=== PATIENT | female | born 1990 | race Caucasian/White ===

== ENCOUNTER 2020-02-23 22:39 | Emergency (ER) | payer BC, OTHER ==
[2020-02-23] MEDS ORDERED: SODIUM CHLORIDE 0.9% 1,000 ML IV ONE (22:58)
[2020-02-23] MEDS ORDERED: MORPHINE SULFATE 4 MG/ML SYRINGE IV STA (23:39)
[2020-02-23] MEDS ORDERED: ONDANSETRON 4 MG/2 ML VIAL IVP STA (23:39)
[2020-02-23 23:41] LABS: Basophils % (A) 0 %; Eosinophils # (A) 0.1 k/uL (0-0.7); Eosinophils % (A) 1 %; HGB 12.9 gm/dL (11.4-16.0); Lymphocytes # (A) 1.7 k/uL (1.0-4.8); Lymphocytes % (A) 15 %; MCH 31.3 pg (25.0-35.0); MCHC 33.9 g/dL (31.0-37.0); MCV 92.4 fL (80.0-100.0); Mean Platelet Volume 8.7; Monocytes # (A) 0.6 k/uL (0-1.0); Monocytes % (A) 5 %; Neutrophils # (A) 8.9 k/uL (1.3-7.7); Neutrophils % (A) 77 %; Platelet Count 216 k/uL (150-450); RBC 4.11 m/uL (3.80-5.40); RDW 12.5 % (11.5-15.5); WBC 11.5 k/uL (3.8-10.6)
[2020-02-23 23:57] LABS: African American GFR (CKD) >90 (>60 ml/min/1.73 sqM); Anion Gap 9 mmol/L; Blood Urea Nitrogen 12 mg/dL (7-17); Calcium 9.2 mg/dL (8.4-10.2); Carbon Dioxide 19 mmol/L (22-30); Chloride 107 mmol/L (98-107); Glucose 141 mg/dL (74-99); Non-African American GFR(CKD) >90 (>60 ml/min/1.73 sqM); Potassium 3.7 mmol/L (3.5-5.1); Sodium 135 mmol/L (137-145)
[2020-02-24 00:14] LABS: HCG,Quantitative Serum 394.6 mIU/mL
[2020-02-24] MEDS ORDERED: ONDANSETRON 4 MG/2 ML VIAL IVP STA (00:53)
[2020-02-24] MEDS ORDERED: MORPHINE SULFATE 4 MG/ML SYRINGE IV STA (01:18)
--- NOTE | 2020-02-24 02:56 | US ---
EXAMINATION TYPE: Transabdominal DATE OF EXAM: 02/24/2020 2:35 AM COMPARISON: NONE CLINICAL HISTORY: R/O ectopic. Pain and vomiting. EXAM PERFORMED: Transvaginal (TV) and Transabdominal (TA) EXAM MEASUREMENTS: GESTATIONAL AGE / DATING Physician Established: Not yet established Dates by LMP: (5 weeks/0 days) EDC: 10/26/2020 Dates by First Scan: No previous this is first scan Dates by Current Scan for: No IUP seen at this time MATERNAL ANATOMY Uterus: 7.5 x 3.3 x 3.4 cm Right Ovary: 2.0 x 1.6 x 1.5 cm Left Ovary: 3.6 x 2.7 x 3.2 cm Post CDS / Adnexa: comples fluid area Presence of free fluid: yes Presence of corpus luteal cyst: no Presence of subchorionic bleed: no GESTATION / SURVEY IUP: No IUP seen at this time Beta HcG (if available): 394.6 No definite ectopic visualized. IMPRESSION: There is tiny amount of free fluid in the cul-de-sac. No evidence of a gestational sac. N o sign of ectopic .
[2020-02-24] MEDS ORDERED: fentaNYL (PF) 50 MCG/ML 2 ML AMP IV STA ×2 (03:47→04:32)
[2020-02-24] MEDS ORDERED: SODIUM CHLORIDE 0.9% 1,000 ML IV ONE (05:10)
--- NOTE | 2020-02-24 05:22 | ED ---
Abdominal Pain HPI - General Chief Complaint: Abdominal Pain Stated Complaint: Abdominal Pain,2-3 wks poss ectopic Time Seen by Provider: 02/23/20 22:56 Source: patient Mode of arrival: ambulatory Limitations: no limitations - History of Present Illness Initial Comments: This patient is a 30-year-old woman who presents to be evaluated for suprapubic abdominal pain. She states that her pain began at 4 PM. She did go to [facility] regarding the pain. She also had a recent test that was positive. While at the [facility] she had labs that showed a hCG of 470, and she had an ultrasound that did not reveal location of her . There was however no evidence of ectopic . The patient states that she was advised if the pain worsened she should come to the emergency department here and may need to be seen by Dr. Ham. The patient states that she had gone home and then her pain did indeed worsened. She has also been having nausea and vomiting. MD Complaint: abdominal pain -: hour(s) Location: suprapubic Radiation: none Migration to: no migration Severity: severe Quality: cramping Consistency: constant Improves With: nothing Worsens With: nothing - Related Data LMP (females 10-50): 1 month Allergies Allergy/AdvReac Type Severity Reaction Status Date / Time loratadine [From Claritin] Allergy Rash/Hives Verified 02/25/20 14:59 Review of Systems ROS Statement: Those systems with pertinent positive or pertinent negative responses have been documented in the HPI. ROS Other: All systems not noted in ROS Statement are negative. Constitutional: Denies: fever, chills Respiratory: Denies: cough, dyspnea Cardiovascular: Denies: chest pain, palpitations Gastrointestinal: Reports: abdominal pain, nausea, vomiting. Denies: diarrhea, constipation Genitourinary: Reports: abnormal menses. Denies: dysuria, hematuria Musculoskeletal: Denies: back pain Skin: Denies: rash Neurological: Denies: headache, weakness, numbness Past Medical History Additional Past Medical History / Comment(s): PCOS History of Any Multi-Drug Resistant Organisms: None Reported Past Surgical History: No Surgical Hx Reported Past Psychological History: No Psychological Hx Reported Smoking Status: Never smoker Past Alcohol Use History: None Reported Past Drug Use History: None Reported General Exam Limitations: no limitations General appearance: alert, in no apparent distress Head exam: Present: atraumatic, normocephalic Eye exam: Present: normal appearance. Absent: scleral icterus, conjunctival injection ENT exam: Present: normal oropharynx Neck exam: Present: normal inspection Respiratory exam: Present: normal lung sounds bilaterally. Absent: respiratory distress, wheezes, rales, rhonchi, stridor Cardiovascular Exam: Present: regular rate, normal rhythm, tachycardia, normal heart sounds. Absent: systolic murmur, diastolic murmur, rubs, gallop GI/Abdominal exam: Present: soft, normal bowel sounds. Absent: distended, tenderness, guarding, rebound, rigid, mass, pulsatile mass, hernia Extremities exam: Present: normal inspection, normal capillary refill. Absent: pedal edema, calf tenderness Back exam: Present: normal inspection. Absent: CVA tenderness (R), CVA tenderness (L) Neurological exam: Present: alert Skin exam: Present: warm, dry, intact, normal color. Absent: rash Course Vital Signs 02/23/20 02/24/20 02/24/20 22:51 00:04 01:24 Temperature 98.4 F 96.8 F L Pulse Rate 115 H 116 H 96 Respiratory 20 19 19 Rate Blood Pressure 132/87 121/84 110/77 O2 Sat by Pulse 100 100 100 Oximetry 02/24/20 02/24/20 02/24/20 02:35 05:18 05:51 Temperature 97.0 F L 98.0 F Pulse Rate 100 98 82 Respiratory 19 18 16 Rate Blood Pressure 118/94 106/71 107/61 O2 Sat by Pulse 100 99 99 Oximetry Medical Decision Making - Medical Decision Making Patient is a 30-year-old woman in her early with suprapubic pain. The repeat here does not show an increase in pelvic fluid. No observed. Case discussed with Dr. Ham does recommend serial hCG and ultrasound. Patient has had symptomatic improvement. We discussed appropriate further care and follow-up as well as return parameters. - Lab Data Result diagrams: 02/23/20 23:31 02/23/20 23:31 Lab Results 02/23/20 02/23/20 02/23/20 Range/Units 23:31 23:31 23:31 WBC 11.5 H (3.8-10.6) k/uL RBC 4.11 (3.80-5.40) m/uL Hgb 12.9 (11.4-16.0) gm/dL Hct 38.0 (34.0-46.0) % MCV 92.4 (80.0-100.0) fL MCH 31.3 (25.0-35.0) pg MCHC 33.9 (31.0-37.0) g/dL RDW 12.5 (11.5-15.5) % Plt Count 216 (150-450) k/uL Neutrophils % 77 % Lymphocytes % 15 % Monocytes % 5 % Eosinophils % 1 % Basophils % 0 % Neutrophils # 8.9 H (1.3-7.7) k/uL Lymphocytes # 1.7 (1.0-4.8) k/uL Monocytes # 0.6 (0-1.0) k/uL Eosinophils # 0.1 (0-0.7) k/uL Basophils # 0.0 (0-0.2) k/uL Sodium 135 L (137-145) mmol/L Potassium 3.7 (3.5-5.1) mmol/L Chloride 107 (98-107) mmol/L Carbon Dioxide 19 L (22-30) mmol/L Anion Gap 9 mmol/L BUN 12 (7-17) mg/dL Creatinine 0.80 (0.52-1.04) mg/dL Est GFR (CKD-EPI)AfAm >90 (>60 ml/min/1.73 sqM) Est GFR (CKD-EPI)NonAf >90 (>60 ml/min/1.73 sqM) Glucose 141 H (74-99) mg/dL Calcium 9.2 (8.4-10.2) mg/dL HCG, Quant 394.6 mIU/mL Blood Type O Positive Blood Type Recheck No Previous Record Bld Type Recheck Status [facility] ONLY Disposition Clinical Impression: Threatened Disposition: HOME SELF-CARE Condition: Good Instructions (If sedation given, give patient instructions): Ectopic (DC), Threatened Miscarriage (ED) Is patient prescribed a controlled substance at d/c from ED?: No Referrals: Catherine Augustine MD [Primary Care Provider] - 1-2 days Jada Ham DO [Doctor of Osteopathic Medicine] - 1-2 days
[2020-02-24 05:52] VITALS: BP 107/61; PULSE 82; RESP 16; TEMP 98
== END 2020-02-24 05:50 | disposition home or self-care (01) ==
LOC: EC 22:39
DX: O20.0 Threatened abortion (principal); Z3A.00 Weeks of gestation of pregnancy not specified; Z88.8 Allergy status to other drugs, medicaments and biological substances
CPT/HCPCS: 36415; 86900; 86901; 80048; 85025; 84702; 99284; 96374; 96375 ×2; 96376 ×2; 96361; J2405; 76801; 76817

== ENCOUNTER 2020-02-25 09:57 | Observation (INO) | payer OTHER ==
[2020-02-25] MEDS ORDERED: SODIUM CHLORIDE 0.9% 1,000 ML IV ONE ×2 (10:20→13:14)
[2020-02-25 10:45] LABS: Appearance,Urine Cloudy (Clear); Bilirubin,Urine Negative (Negative); Blood,Urine Negative (Negative); Color,Urine Yellow; Glucose,Urine (UA) Negative (Negative); Ketones,Urine 1+ (Negative); Leukocyte Esterase,Urine Negative (Negative); Mucus,Urine Few /hpf; Nitrite,Urine Negative (Negative); Protein,Urine Trace (Negative); RBC,Urine 2 /hpf (0-5); Specific Gravity,Urine 1.016 (1.001-1.035); Squamous Epithelial Cell,Urine 8 /hpf (0-4); Urobilinogen,Urine <2.0 mg/dL (<2.0); WBC,Urine 1 /hpf (0-5)
[2020-02-25 10:55] LABS: Basophils % (A) 0 %; Eosinophils # (A) 0.1 k/uL (0-0.7); Eosinophils % (A) 1 %; HCT 27.2 % (34.0-46.0); Lymphocytes # (A) 1.3 k/uL (1.0-4.8); Lymphocytes % (A) 19 %; MCH 32.8 pg (25.0-35.0); MCHC 35.1 g/dL (31.0-37.0); MCV 93.4 fL (80.0-100.0); Mean Platelet Volume 8.5; Monocytes # (A) 0.5 k/uL (0-1.0); Monocytes % (A) 7 %; Neutrophils # (A) 4.7 k/uL (1.3-7.7); Neutrophils % (A) 71 %; Platelet Count 197 k/uL (150-450); RBC 2.91 m/uL (3.80-5.40); RDW 12.7 % (11.5-15.5); WBC 6.7 k/uL (3.8-10.6)
[2020-02-25 10:56] LABS: HGB 9.6 gm/dL (11.4-16.0)
[2020-02-25 10:59] LABS: ALT 13 U/L (4-34); AST 19 U/L (14-36); African American GFR (CKD) >90 (>60 ml/min/1.73 sqM); Albumin 4.1 g/dL (3.5-5.0); Alkaline Phosphatase 42 U/L (38-126); Anion Gap 8 mmol/L; Blood Urea Nitrogen 7 mg/dL (7-17); Calcium 8.6 mg/dL (8.4-10.2); Carbon Dioxide 21 mmol/L (22-30); Chloride 110 mmol/L (98-107); Glucose 111 mg/dL (74-99); Non-African American GFR(CKD) >90 (>60 ml/min/1.73 sqM); Potassium 3.7 mmol/L (3.5-5.1); Sodium 139 mmol/L (137-145); Total Bilirubin 0.7 mg/dL (0.2-1.3); Total Protein 6.7 g/dL (6.3-8.2)
--- NOTE | 2020-02-25 11:02 | ED ---
General Adult HPI - General Chief complaint: Arrhythmia/Palpitations Stated complaint: high heart rate/high BP/lab recheck Time Seen by Provider: 02/25/20 10:05 Source: patient, RN notes reviewed, old records reviewed Mode of arrival: ambulatory Limitations: no limitations - History of Present Illness Initial comments: This is a 30-year-old female who presents emergency Department stating that she is . Patient states she was here on Monday with abdominal pain. Patient states the pain is in the lower abdomen in the upper abdomen. Patient states they did an ultrasound was unable to see any intrauterine . Patient states her beta hCG was in the 300s. Patient states she is back today because she felt her heart rate going up to 140 last night and she called her [employer] and they told her to come into the hospital to be evaluated. Patient states she still has some abdominal pain the suprapubic region in the epigastric region but it is much improved compared to the other night when she was in the emergency department. Patient denies any vaginal bleeding at any time. - Related Data Home Medications Medication Instructions Recorded Confirmed [id number] Acid 1 cap PO DAILY 02/25/20 02/25/20 [-U Capsule (formulary)] Allergies Allergy/AdvReac Type Severity Reaction Status Date / Time loratadine [From Claritin] Allergy Rash/Hives Verified 02/25/20 10:55 Review of Systems ROS Statement: Those systems with pertinent positive or pertinent negative responses have been documented in the HPI. ROS Other: All systems not noted in ROS Statement are negative. Past Medical History Additional Past Medical History / Comment(s): PCOS History of Any Multi-Drug Resistant Organisms: None Reported Past Surgical History: No Surgical Hx Reported Past Psychological History: No Psychological Hx Reported Smoking Status: Never smoker Past Alcohol Use History: None Reported Past Drug Use History: None Reported General Exam - General Exam Comments Initial Comments: GENERAL: Patient is well-developed and well-nourished. Patient is nontoxic and well- hydrated and is in mild distress. ENT: Neck is soft and supple. No significant lymphadenopathy is noted. Oropharynx is clear. Moist mucous membranes. Neck has full range of motion without eliciting any pain. EYES: The sclera were anicteric and conjunctiva were pink and moist. Extraocular movements were intact and pupils were equal round and reactive to light. Eyelids were unremarkable. PULMONARY: Unlabored respirations. Good breath sounds bilaterally. No audible rales rhonchi or wheezing was noted. CARDIOVASCULAR: There is a regular rate and rhythm without any murmurs gallops or rubs. ABDOMEN: Patient has tenderness in the suprapubic and epigastric region. SKIN: Skin is clear with no lesions or rashes and otherwise unremarkable. NEUROLOGIC: Patient is alert and oriented x3. Cranial nerves II through XII are grossly intact. Motor and sensory are also intact. Normal speech, volume and content. Symmetrical smile. MUSCULOSKELETAL: Normal extremities with adequate strength and full range of motion. LYMPHATICS: No significant lymphadenopathy is noted PSYCHIATRIC: Normal psychiatric evaluation. Limitations: no limitations Course Vital Signs 02/25/20 02/25/20 02/25/20 10:07 10:19 10:45 Temperature 98.7 F Pulse Rate 105 H Pulse Rate [ 105 H 105 H Acute Specialist ] Pulse Rate [ 120 H Sitting] Pulse Rate [ 123 H Standing] Pulse Rate [ 105 H Supine] Respiratory 18 Rate Blood Pressure 119/73 Blood Pressure 125/72 [Sitting] Blood Pressure 121/73 [Standing] Blood Pressure 123/63 [Supine] O2 Sat by Pulse 100 Oximetry Medical Decision Making - Medical Decision Making EKG shows sinus tachycardia at 102 bpm LA interval 240 QRS is 96 QT interval 364 QTC is 474. Patient's EKG shows no ST segment elevation or depression. Ultrasound showed no intrauterine . Showed a scant amount of fluid unchanged from the previous ultrasound. I spoke with Dr. Dora John came to the emergency department and saw the patient and wanted the patient admitted. - Lab Data Result diagrams: 02/25/20 10:25 02/25/20 10:25 Lab Results 02/25/20 02/25/20 02/25/20 Range/Units 10:25 10:25 10:25 WBC 6.7 (3.8-10.6) k/uL RBC 2.91 L (3.80-5.40) m/uL Hgb 9.6 L D (11.4-16.0) gm/dL Hct 27.2 L (34.0-46.0) % MCV 93.4 (80.0-100.0) fL MCH 32.8 (25.0-35.0) pg MCHC 35.1 (31.0-37.0) g/dL RDW 12.7 (11.5-15.5) % Plt Count 197 (150-450) k/uL Neutrophils % 71 % Lymphocytes % 19 % Monocytes % 7 % Eosinophils % 1 % Basophils % 0 % Neutrophils # 4.7 (1.3-7.7) k/uL Lymphocytes # 1.3 (1.0-4.8) k/uL Monocytes # 0.5 (0-1.0) k/uL Eosinophils # 0.1 (0-0.7) k/uL Basophils # 0.0 (0-0.2) k/uL Sodium 139 (137-145) mmol/L Potassium 3.7 (3.5-5.1) mmol/L Chloride 110 H (98-107) mmol/L Carbon Dioxide 21 L (22-30) mmol/L Anion Gap 8 mmol/L BUN 7 (7-17) mg/dL Creatinine 0.70 (0.52-1.04) mg/dL Est GFR (CKD-EPI)AfAm >90 (>60 ml/min/1.73 sqM) Est GFR (CKD-EPI)NonAf >90 (>60 ml/min/1.73 sqM) Glucose 111 H (74-99) mg/dL Calcium 8.6 (8.4-10.2) mg/dL Total Bilirubin 0.7 (0.2-1.3) mg/dL AST 19 (14-36) U/L ALT 13 (4-34) U/L Alkaline Phosphatase 42 (38-126) U/L Total Protein 6.7 (6.3-8.2) g/dL Albumin 4.1 (3.5-5.0) g/dL HCG, Quant 327.2 mIU/mL Urine Color Yellow Urine Appearance Cloudy H (Clear) Urine pH 6.0 (5.0-8.0) Ur Specific [place] 1.016 (1.001-1.035) Urine Protein Trace H (Negative) Urine Glucose (UA) Negative (Negative) Urine Ketones 1+ H (Negative) Urine Blood Negative (Negative) Urine Nitrite Negative (Negative) Urine Bilirubin Negative (Negative) Urine Urobilinogen <2.0 (<2.0) mg/dL Ur Leukocyte Esterase Negative (Negative) Urine RBC 2 (0-5) /hpf Urine WBC 1 (0-5) /hpf Ur Squamous Epith Cells 8 H (0-4) /hpf Urine Mucus Few H (None) /hpf Disposition Clinical Impression: Ectopic , Anemia Disposition: ADMITTED IP TO THIS HOSP Referrals: Catherine Augustine MD [Primary Care Provider] - 1-2 days Time of Disposition: 13:05
[2020-02-25 11:14] LABS: HCG,Quantitative Serum 327.2 mIU/mL
--- NOTE | 2020-02-25 12:41 | US ---
EXAMINATION TYPE: Transabdominal DATE OF EXAM: 02/25/2020 11:49 AM COMPARISON: NONE CLINICAL HISTORY: Abdominal pain . Pain EXAM PERFORMED: Transvaginal (TV) and Transabdominal (TA) EXAM MEASUREMENTS: GESTATIONAL AGE / DATING Physician Established: Not yet established Dates by LMP: ( 5 weeks/1 days) EDC: 10/26/2020 Dates by First Scan: (5 weeks/0 days) EDC: 10/26/2020 Dates by Current Scan for: No IUP seen at this time MATERNAL ANATOMY Uterus: 7.6 x 3.1 x 5.7cm Right Ovary: 2.6 x 1.9 x 2.6 cm Left Ovary: Obscured by bowel gas. Post CDS / Adnexa: wnl Presence of free fluid: yes Presence of corpus luteal cyst: no Presence of subchorionic bleed: no GESTATION / SURVEY IUP: No IUP seen at this time Beta HcG (if available): 327.2 IMPRESSION: No intrauterine identified at this time. Correlate serial beta hCG and/or ultrasound.
--- NOTE | 2020-02-25 13:32 | P.HPOB ---
History of Present Illness H&P Date: 02/25/20 Chief Complaint: Possible ectopic , anemia This is a 30-year-old female 1 para 0 with an estimated date of confinement of 01/20/2020 who presented to the emergency room today with complaints of heart palpitations and tachycardia up to the 140s last night. She also stated her blood pressure was elevated at about 160/90. She initially presented to the emergency room at [facility] on Monday and was told her beta hCG was of around 470. Ultrasound did not show anything. She returned to the emergency room Monday at [facility] with complaints of worsening abdominal pain. She denied any vaginal bleeding. At that time beta hCG level had dropped to approximately 390. Ultrasound showed only a small amount of free fluid and nothing in the uterus. They did give her pain medication and her pain did subside. Today she states her pain is much better than it was on Monday night. She does still have some upper abdominal discomfort which is worse than her lower abdominal pain. She did state she was feeling a pressure when she tried to urinate or have a bowel movement on Monday but this has resolved now. Her concern today was her heart rate and palpitations. She denies any nausea but did have some nausea after the pain medication on Monday. Pelvic ultrasound today showed no increase in free fluid and still nothing in the uterus or the adnexal areas. The patient does have a history of polycystic ovarian disease and was told that she could not get . She has been trying for a number of years to get and had pretty much given up. At this time, she does not plan to try to get ag derik and her had discussed getting a vasectomy. If she does need surgery, she is not opposed to losing her tube. REHABILITATION AIDE/SCHEDULER history: No history of sexually transmitted diseases. She lost approximat leonides 30 pounds and her periods did become more regular and monthly over the last year. Previously she had had irregular periods. 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 Review of Systems Constitutional: Denies chills, Denies fever Eyes: denies blurred vision, denies pain Ears, nose, mouth and throat: Denies headache, Denies sore throat Cardiovascular: Denies chest pain, Denies shortness of breath Respiratory: Denies cough Gastrointestinal: Reports abdominal pain, Denies nausea, Denies vomiting Genitourinary: Reports pelvic pain, Reports , Denies abnormal vaginal bleeding Musculoskeletal: Denies myalgias Integumentary: Denies pruritus, Denies rash Neurological: Denies numbness, Denies weakness Past Medical History Additional Past Medical History / Comment(s): PCOS History of Any Multi-Drug Resistant Organisms: None Reported Additional Past Surgical History / Comment(s): D&C approximate 10 years ago for heavy bleeding Past Psychological History: No Psychological Hx Reported Smoking Status: Never smoker Past Alcohol Use History: None Reported Past Drug Use History: None Reported Medications and Allergies Home Medications Medication Instructions Recorded Confirmed Type Cwj-Ttaw-Aopiu Acid 1 cap PO DAILY 02/25/20 02/25/20 History [-U Capsule (formulary)] Allergies Allergy/AdvReac Type Severity Reaction Status Date / Time loratadine [From Claritin] Allergy Rash/Hives Verified 02/25/20 10:55 Exam Osteopathic Statement: *. No significant issues noted on an osteopathic structural exam other than those noted in the History and Physical/Consult. Vital Signs Temp Pulse Pulse Pulse Pulse Pulse Resp 02/25/20 10:45 105 H 120 H 123 H 105 H 02/25/20 10:19 105 H 02/25/20 10:07 98.7 F 105 H 18 BP BP BP BP Pulse Ox 02/25/20 10:45 125/72 121/73 123/63 02/25/20 10:19 02/25/20 10:07 119/73 100 Intake and Output 02/24/20 02/25/20 02/25/20 22:59 06:59 14:59 Other: Weight 88.451 kg Gen.: Well-developed well-nourished female in no acute distress. 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 She is tender in the epig astric and right upper abdomen area with no masses palpated. Very minimal tenderness suprapubically. Pelvic exam deferred at this time Extremities: Negative Homans Results Result Diagrams: 02/25/20 10:25 02/25/20 10:25 Abnormal Lab Results - Last 24 Hours (Table) 02/25/20 02/25/20 02/25/20 Range/Units 10:25 10:25 10:25 RBC 2.91 L (3.80-5.40) m/uL Hgb 9.6 L D (11.4-16.0) gm/dL Hct 27.2 L (34.0-46.0) % Chloride 110 H (98-107) mmol/L Carbon Dioxide 21 L (22-30) mmol/L Glucose 111 H (74-99) mg/dL Urine Appearance Cloudy H (Clear) Urine Protein Trace H (Negative) Urine Ketones 1+ H (Negative) Ur Squamous Epith Cells 8 H (0-4) /hpf Urine Mucus Few H (None) /hpf Assessment and Plan (1) Anemia Current Visit: Yes Status: Acute Code(s): D64.9 - ANEMIA, UNSPECIFIED SNOMED Code(s): 943135020 (2) Ectopic Current Visit: Yes Status: Acute Code(s): O00.90 - UNSPECIFIED ECTOPIC WITHOUT INTRAUTERINE SNOMED Code(s): 79657641 Plan: I discussed plan of care with patient and her . Since her beta hCG level is going down, her pain is decreased, and her ultrasound today still shows no increase in free fluid despite her drop in hemoglobin, I would like to admit her for observation and serial hemoglobins. If her pain increases or her serial H&H's show a steady decline, we will consider laparoscopy at that time. I Will allow her to eat right now but will keep her nothing by mouth after midnight just in case surgery is necessary. Patient and her are in agreement with this plan.
[2020-02-25 18:00] LABS: Basophils % (A) 0 %; Eosinophils # (A) 0.1 k/uL (0-0.7); Eosinophils % (A) 2 %; HCT 25.3 % (34.0-46.0); HGB 8.5 gm/dL (11.4-16.0); Lymphocytes # (A) 1.4 k/uL (1.0-4.8); Lymphocytes % (A) 21 %; MCH 31.9 pg (25.0-35.0); MCHC 33.6 g/dL (31.0-37.0); Mean Platelet Volume 8.5; Monocytes # (A) 0.4 k/uL (0-1.0); Monocytes % (A) 6 %; Neutrophils # (A) 4.6 k/uL (1.3-7.7); Neutrophils % (A) 69 %; Platelet Count 173 k/uL (150-450); RBC 2.66 m/uL (3.80-5.40); RDW 12.9 % (11.5-15.5); WBC 6.7 k/uL (3.8-10.6)
[2020-02-25 23:50] LABS: Basophils % (A) 1 %; Eosinophils # (A) 0.2 k/uL (0-0.7); Eosinophils % (A) 3 %; HCT 24.8 % (34.0-46.0); HGB 8.2 gm/dL (11.4-16.0); Lymphocytes # (A) 1.5 k/uL (1.0-4.8); Lymphocytes % (A) 25 %; MCH 31.5 pg (25.0-35.0); MCV 95.4 fL (80.0-100.0); Mean Platelet Volume 8.4; Monocytes # (A) 0.4 k/uL (0-1.0); Monocytes % (A) 7 %; Neutrophils # (A) 3.9 k/uL (1.3-7.7); Neutrophils % (A) 63 %; Platelet Count 183 k/uL (150-450); WBC 6.2 k/uL (3.8-10.6)
[2020-02-26 06:12] LABS: Basophils % (A) 1 %; Eosinophils # (A) 0.2 k/uL (0-0.7); Eosinophils % (A) 3 %; HCT 23.6 % (34.0-46.0); HGB 8.2 gm/dL (11.4-16.0); Lymphocytes # (A) 1.3 k/uL (1.0-4.8); Lymphocytes % (A) 27 %; MCHC 34.7 g/dL (31.0-37.0); MCV 95.1 fL (80.0-100.0); Mean Platelet Volume 8.8; Monocytes # (A) 0.3 k/uL (0-1.0); Monocytes % (A) 6 %; Neutrophils % (A) 61 %; Platelet Count 180 k/uL (150-450); RBC 2.48 m/uL (3.80-5.40); RDW 13.3 % (11.5-15.5); WBC 4.9 k/uL (3.8-10.6)
[2020-02-26] MEDS ORDERED: METHOTREXATE SODIUM (PF) 25 MG/ML 2 ML VIAL IM ONE (08:57)
--- NOTE | 2020-02-26 09:05 | P.DS ---
Providers Date of admission: 02/25/20 13:29 Expected date of discharge: 02/26/20 Attending physician: Lila John Primary care physician: Catherine Augustine - Discharge Diagnosis(es) (1) Anemia Current Visit: Yes Status: Acute (2) Ectopic Current Visit: Yes Status: Acute Hospital Course: This is a 30-year-old female 1 para 0 with probable ectopic based on ultrasound and symptoms. Her pain has not increased but still is at about 4 out of 10. She has not taken any pain medication through the night. She denies any vaginal bleeding. She has not felt dizzy or lightheaded and denies any nausea or vomiting. She denies any fast heart rate through the night. We have discussed our plan of care and will proceed with methotrexate injection today and repeat beta hCG level next Monday. We will keep her off of work until at least the following Monday. She is advised to call or return to the emergency room if she starts having severe pain, dizziness or lightheadedness, or any other concerns. We had a long discussion regarding potential surgery versus methotrexate and agree that I may given and do surgery and not find the ectopic at this time. Since her beta hCG levels are going down, we understand that this is not a normal . She is in agreement to give the methotrexate a try. She is advised to follow up in the office with me next and to get her beta hCG level drawn on Monday. Abdomen is soft with minimal tenderness, no guarding or rebound, and no masses palpated. She is having normal bowel movements. Impression is probable ectopic . Plan is to discharge home today after methotrexate injection. Patient Condition at Discharge: Stable Plan - Discharge Summary Discharge Rx Participant: No New Discharge Prescriptions: Discontinued [id number] Acid [-U Capsule (formulary)] 1 cap PO DAILY Follow up Appointment(s)/Referral(s): Catherine Augustine MD [Primary Care Provider] - 1-2 days Lila John DO [Doctor of Osteopathic Medicine] - 03/05/20 Activity/Diet/Wound Care/Special Instructions: Off work until 03/09/2020. Limited activity. No intercourse. No heavy lifting. If severe pain, dizziness or lightheadedness, persistent tachycardia, return to emergency room or call the office. Discharge Disposition: HOME SELF-CARE
[2020-02-26 10:45] VITALS: RESP 18
[2020-02-26 11:14] VITALS: BP 128/78; PULSE 89; TEMP 98.4
== END 2020-02-26 11:27 | disposition home or self-care (01) ==
LOC: EC 09:57 → 6PED 13:29
PROVIDERS: ADMIT Obstetrics & Gynecology; ATTEND Obstetrics & Gynecology
DX: O00.90 Unspecified ectopic pregnancy without intrauterine pregnancy (principal); D64.9 Anemia, unspecified; E28.2 Polycystic ovarian syndrome; R00.2 Palpitations; R00.0 Tachycardia, unspecified; R03.0 Elevated blood-pressure reading, without diagnosis of hypertension; Z88.8 Allergy status to other drugs, medicaments and biological substances; Z03.818 Encounter for observation for suspected exposure to other biological agents ruled out
CPT/HCPCS: 96361 ×2; 96372; 96360; 99285; 36415; 93005; 80053; 85025 ×2; 81001; 84702 ×2; 76801; 76817; G0378 ×2; U0003; J9260

== ENCOUNTER → 2020-03-04 | Outpatient (CLI) | payer OTHER | END | disposition home or self-care (01) | LOC: LABWHC1 11:02 | PROVIDERS: ATTEND Obstetrics & Gynecology | DX: O00.90 Unspecified ectopic pregnancy without intrauterine pregnancy (principal) | CPT/HCPCS: 36415; 84702 ==

== ENCOUNTER 2020-11-17 10:57 | Emergency (ER) | payer BC ==
[2020-11-17 11:14] VITALS: TEMP 97.9
--- NOTE | 2020-11-17 11:37 | ED ---
General Adult HPI - General Chief complaint: Chest Pain Stated complaint: chest pain Time Seen by Provider: 11/17/20 11:16 Source: patient, RN notes reviewed Mode of arrival: ambulatory Limitations: no limitations - History of Present Illness Initial comments: 30-year-old female with a past medical history of PCOS, ectopic presents to the emergency room for a chief complaint of chest pain. Patient reports that about a week and half ago she started to experience some back pain. States she was noticing this when walking. Patient states the symptoms have progressed and she is now having right sided anterior chest pain that comes and goes. She did see her doctor who diagnosed her with a T-wave inversion on EKG. She was scheduled for a stress test on December 03. However when symptoms were worsening over the weekend her doctor recommended she come to the emergency room. Patient denies any nausea associated with the pain. She denies radiating pain. Patient denies diaphoresis. No smoking history however she does have history of high cholesterol, currently trying to control his diet. Patient also states she did gain 11 pounds in the past 2 months. Patient has no other complaints at this time including abdominal pain, nausea or vomiting, headache, or visual changes. - Related Data Home Medications Medication Instructions Recorded Confirmed Sertraline [Zoloft] 100 mg PO HS 11/17/20 11/17/20 buPROPion XL [Wellbutrin Xl] 150 mg PO DAILY 11/17/20 11/17/20 Allergies Allergy/AdvReac Type Severity Reaction Status Date / Time loratadine [From Claritin] Allergy Rash/Hives Verified 11/17/20 12:13 Review of Systems ROS Statement: Those systems with pertinent positive or pertinent negative responses have been documented in the HPI. ROS Other: All systems not noted in ROS Statement are negative. Past Medical History Additional Past Medical History / Comment(s): PCOS, ectopic , History of Any Multi-Drug Resistant Organisms: None Reported Past Surgical History: No Surgical Hx Reported Additional Past Surgical History / Comment(s): D&C Past Anesthesia/Blood Transfusion Reactions: No Reported Reaction Past Psychological History: Anxiety, Depression Smoking Status: Never smoker Past Alcohol Use History: Rare Past Drug Use History: None Reported - Past Family History Father Family Medical History: No Reported History Additional Family Medical History / Comment(s): Pt does not know her paternal father very well Mother Additional Family Medical History / Comment(s): Rapid progressive IGa nephropathy-autoimmune disease tx affecting her kidneys tx with chemotherapy to increase immune system. General Exam Limitations: no limitations General appearance: alert, in no apparent distress Head exam: Present: atraumatic, normocephalic, normal inspection Eye exam: Present: normal appearance, PERRL, EOMI. Absent: scleral icterus, conjunctival injection, periorbital swelling ENT exam: Present: normal exam, mucous membranes moist Neck exam: Present: normal inspection, full ROM. Absent: tenderness, meningismus, lymphadenopathy Respiratory exam: Present: normal lung sounds bilaterally. Absent: respiratory distress, wheezes, rales, rhonchi, stridor Cardiovascular Exam: Present: regular rate, normal rhythm, normal heart sounds. Absent: systolic murmur, diastolic murmur, rubs, gallop, clicks GI/Abdominal exam: Present: soft, normal bowel sounds. Absent: distended, tenderness, guarding, rebound, rigid Course Vital Signs 11/17/20 11/17/20 11/17/20 11:08 11:23 13:20 Temperature 97.9 F Pulse Rate 71 68 Respiratory 20 18 Rate Blood Pressure 133/85 118/66 O2 Sat by Pulse 99 100 100 Oximetry 11/17/20 15:36 Temperature Pulse Rate 69 Respiratory 16 Rate Blood Pressure 132/98 O2 Sat by Pulse 98 Oximetry EKG Findings - EKG Comments: EKG Findings:: Normal sinus rhythm, ventricular rate 66, SD interval 128, QTc 446, t waves inversions V2-V5 Medical Decision Making - Medical Decision Making Vitals are stable. Physical exam unremarkable. CBC and CMP unremarkable. Troponin negative. D-dimer within normal limits at 0.18. EKG does show T-wave inversions in V2 V3 V4 V5. I did recommend keeping patient for cardiology evaluation however she adamantly does not want to stay. She is aware we cannot do a complete cardiac evaluation through the emergency room. She does agree to stay for a 3 hour troponin. She does have a stress test scheduled in 2 weeks. She will return for any worsening symptoms. Case discussed with Dr ga - Lab Data Result diagrams: 11/17/20 11:43 11/17/20 11:43 Lab Results 11/17/20 11/17/20 11/17/20 Range/Units 11:43 11:43 11:43 WBC 5.6 (3.8-10.6) k/uL RBC 4.68 (3.80-5.40) m/uL Hgb 15.0 (11.4-16.0) gm/dL Hct 43.5 (34.0-46.0) % MCV 92.9 (80.0-100.0) fL MCH 32.0 (25.0-35.0) pg MCHC 34.4 (31.0-37.0) g/dL RDW 12.2 (11.5-15.5) % Plt Count 201 (150-450) k/uL MPV 8.5 Neutrophils % 61 % Lymphocytes % 30 % Monocytes % 5 % Eosinophils % 2 % Basophils % 1 % Neutrophils # 3.4 (1.3-7.7) k/uL Lymphocytes # 1.7 (1.0-4.8) k/uL Monocytes # 0.3 (0-1.0) k/uL Eosinophils # 0.1 (0-0.7) k/uL Basophils # 0.0 (0-0.2) k/uL PT 10.8 (9.0-12.0) sec INR 1.0 (<1.2) APTT 23.8 (22.0-30.0) sec D-Dimer 0.18 (<0.60) mg/L FEU Sodium 138 (137-145) mmol/L Potassium 4.2 (3.5-5.1) mmol/L Chloride 108 H (98-107) mmol/L Carbon Dioxide 19 L (22-30) mmol/L Anion Gap 11 mmol/L BUN 10 (7-17) mg/dL Creatinine 0.85 (0.52-1.04) mg/dL Est GFR (CKD-EPI)AfAm >90 (>60 ml/min/1.73 sqM) Est GFR (CKD-EPI)NonAf >90 (>60 ml/min/1.73 sqM) Glucose 99 (74-99) mg/dL Calcium 9.2 (8.4-10.2) mg/dL Magnesium 2.0 (1.6-2.3) mg/dL Total Bilirubin 0.6 (0.2-1.3) mg/dL AST 22 (14-36) U/L ALT 15 (4-34) U/L Alkaline Phosphatase 67 (38-126) U/L Troponin I (0.000-0.034) ng/mL Total Protein 7.7 (6.3-8.2) g/dL Albumin 4.7 (3.5-5.0) g/dL Amylase 57 (30-110) U/L 11/17/20 11/17/20 Range/Units 11:43 14:45 WBC (3.8-10.6) k/uL RBC (3.80-5.40) m/uL Hgb (11.4-16.0) gm/dL Hct (34.0-46.0) % MCV (80.0-100.0) fL MCH (25.0-35.0) pg MCHC (31.0-37.0) g/dL RDW (11.5-15.5) % Plt Count (150-450) k/uL MPV Neutrophils % % Lymphocytes % % Monocytes % % Eosinophils % % Basophils % % Neutrophils # (1.3-7.7) k/uL Lymphocytes # (1.0-4.8) k/uL Monocytes # (0-1.0) k/uL Eosinophils # (0-0.7) k/uL Basophils # (0-0.2) k/uL PT (9.0-12.0) sec INR (<1.2) APTT (22.0-30.0) sec D-Dimer (<0.60) mg/L FEU Sodium (137-145) mmol/L Potassium (3.5-5.1) mmol/L Chloride (98-107) mmol/L Carbon Dioxide (22-30) mmol/L Anion Gap mmol/L BUN (7-17) mg/dL Creatinine (0.52-1.04) mg/dL Est GFR (CKD-EPI)AfAm (>60 ml/min/1.73 sqM) Est GFR (CKD-EPI)NonAf (>60 ml/min/1.73 sqM) Glucose (74-99) mg/dL Calcium (8.4-10.2) mg/dL Magnesium (1.6-2.3) mg/dL Total Bilirubin (0.2-1.3) mg/dL AST (14-36) U/L ALT (4-34) U/L Alkaline Phosphatase (38-126) U/L Troponin I <0.012 <0.012 (0.000-0.034) ng/mL Total Protein (6.3-8.2) g/dL Albumin (3.5-5.0) g/dL Amylase (30-110) U/L Disposition Clinical Impression: Chest pain Disposition: HOME SELF-CARE Condition: Good Instructions (If sedation given, give patient instructions): Chest Pain (ED) Additional Instructions: Please follow-up with your primary care doctor in one to 2 days. Return to the emergency room for any worsening symptoms such as worsening chest pain or shortness of breath. Is patient prescribed a controlled substance at d/c from ED?: No Referrals: Catherine Augustine MD [Primary Care Provider] - 1-2 days Time of Disposition: 13:52
[2020-11-17 11:50] LABS: Basophils % (A) 1 %; Eosinophils # (A) 0.1 k/uL (0-0.7); Eosinophils % (A) 2 %; HCT 43.5 % (34.0-46.0); Lymphocytes # (A) 1.7 k/uL (1.0-4.8); Lymphocytes % (A) 30 %; MCHC 34.4 g/dL (31.0-37.0); MCV 92.9 fL (80.0-100.0); Mean Platelet Volume 8.5; Monocytes # (A) 0.3 k/uL (0-1.0); Monocytes % (A) 5 %; Neutrophils # (A) 3.4 k/uL (1.3-7.7); Neutrophils % (A) 61 %; Platelet Count 201 k/uL (150-450); RBC 4.68 m/uL (3.80-5.40); RDW 12.2 % (11.5-15.5); WBC 5.6 k/uL (3.8-10.6)
[2020-11-17 11:59] LABS: ALT 15 U/L (4-34); AST 22 U/L (14-36); African American GFR (CKD) >90 (>60 ml/min/1.73 sqM); Albumin 4.7 g/dL (3.5-5.0); Alkaline Phosphatase 67 U/L (38-126); Amylase 57 U/L (30-110); Anion Gap 11 mmol/L; Blood Urea Nitrogen 10 mg/dL (7-17); Calcium 9.2 mg/dL (8.4-10.2); Carbon Dioxide 19 mmol/L (22-30); Chloride 108 mmol/L (98-107); Glucose 99 mg/dL (74-99); Non-African American GFR(CKD) >90 (>60 ml/min/1.73 sqM); Potassium 4.2 mmol/L (3.5-5.1); Sodium 138 mmol/L (137-145); Total Bilirubin 0.6 mg/dL (0.2-1.3); Total Protein 7.7 g/dL (6.3-8.2)
[2020-11-17 12:04] LABS: D-Dimer 0.18 mg/L FEU (<0.60); Partial Thromboplastin Time 23.8 sec (22.0-30.0); Prothrombin Time 10.8 sec (9.0-12.0)
--- NOTE | 2020-11-17 12:19 | XR ---
EXAMINATION TYPE: XR chest 2V DATE OF EXAM: 11/17/2020 COMPARISON: NONE HISTORY: Chest pain. TECHNIQUE: Frontal and lateral views of the chest are obtained. FINDINGS: Overlying EKG leads. There is no focal air space opacity, pleural effusion, or pneumothora x seen. The cardiac silhouette size is within normal limits. The osseous structures are intact. IMPRESSION: No acute cardiopulmonary process.
[2020-11-17 15:37] VITALS: BP 132/98; PULSE 69; RESP 16
== END 2020-11-17 15:37 | disposition home or self-care (01) ==
LOC: EC 10:57
DX: R07.89 Other chest pain (principal); E78.00 Pure hypercholesterolemia, unspecified; F32.9 Major depressive disorder, single episode, unspecified; F41.9 Anxiety disorder, unspecified; Z79.899 Other long term (current) drug therapy
CPT/HCPCS: 36415; 71046; 80053; 82150; 83735; 84484; 85025; 85379; 85610; 85730; 93005; 99285

== ENCOUNTER → 2020-12-03 | Outpatient (CLI) | payer BC ==
--- NOTE | 2020-12-03 11:24 | P.STRESS ---
- Stress Test Note Stress Test Results/Findings: Exam Performed: stress test Exam Date: 12/03/20 Reason for Exam: ABN EKG Height: 5 ft 3 in Weight: 95.5 kg Protocol: JASON Stage: 3 Duration of Exercise: 8:01 Resting Heart Rate: 73 Resting Blood Pressure: 114/78 Maximum Achieved Heart Rate: 167 Maximum Achieved Blood Pressure: 176/75 85% PMHR: 160 100% PMHR: 188 METS: 9.7 Technologist Comment: Stress Test Results/Findings: This is 30-year-old female being evaluated for chest pain and abnormal EKG Stress data: Baseline EKG showed sinus rhythm without any acute ST-T changes. Blood pressure at rest is 114/78 with pulse rate of 73. Patient walked on the Jason protocol for 8 minutes achieving a maximum rate of 167 with a blood press ure 176/75 feet. EKGs taken during or after exercise did not show any significant changes from the baseline. Final impression #1. Negative stress test #2 patient did not expand and chest pain #3. No arrhythmias noted. #4. Patient's exercise capacity is good
--- NOTE | 2020-12-04 10:06 | ECHOS ---
Stress Test Results/Findings: Exam Performed: stress test Exam Date: 12/03/20 Reason for Exam: ABN EKG Height: 5 ft 3 in Weight: 95.5 kg Protocol: JASON Stage: 3 Duration of Exercise: 8:01 Resting Heart Rate: 73 Resting Blood Pressure: 114/78 Maximum Achieved Heart Rate: 167 Maximum Achieved Blood Pressure: 176/75 85% PMHR: 160 100% PMHR: 188 METS: 9.7 Technologist Comment: Stress Test Results/Findings: This is 30-year-old female being evaluated for chest pain and abnormal EKG Stress data: Baseline EKG showed sinus rhythm without any acute ST-T changes. Blood pressure at rest is 114/78 with pulse rate of 73. Patient walked on the Jason protocol for 8 minutes achieving a maximum rate of 167 with a blood pressure 176/75 feet. EKGs taken during or after exercise did not show any significant changes from the baseline. Final impression #1. Negative stress test #2 patient did not expand and chest pain #3. No arrhythmias noted. #4. Patient's exercise capacity is good MTDD
== END | disposition home or self-care (01) ==
LOC: RADNMMAIN 10:34
PROVIDERS: ATTEND Family Medicine
DX: R94.31 Abnormal electrocardiogram [ECG] [EKG] (principal)
CPT/HCPCS: 93017

== ENCOUNTER → 2020-12-25 | Outpatient (CLI) | payer BC ==
--- NOTE | 2020-12-27 07:50 | MR ---
EXAMINATION TYPE: MR brain wo con DATE OF EXAM: 12/25/2020 COMPARISON: NONE HISTORY: Visual hallucinations, dizziness, headaches TECHNIQUE: Multiplanar, multisequence imaging of the brain and brainstem is performed without IV cont rast. FINDINGS: Diffusion weighted images demonstrate no evidence of a recent infarct or other diffusion abnormality. There is no extraaxial fluid collection or significant white matter signal abnormality. The ventricu lar system and cisternal spaces are normal in size and appearance. The brain volume is age appropria te. Midline structures demonstrate normal morphology. The craniocervical junction appears within normal limits. Normal vascular flow voids are present. Incidental dominant left vertebral artery filling bas ilar artery. A few small nasal polyps or mucous retention cysts in inferior sphenoid sinuses suspecte d. The visualized sinuses are clear and the globes are intact. No suspicious opacification of mastoid air cells bilaterally. IMPRESSION: No significant white matter changes. Fairly unremarkable study.
== END | disposition home or self-care (01) ==
LOC: RADMRIMAIN 18:01
PROVIDERS: ATTEND Family Medicine
DX: R44.1 Visual hallucinations (principal); R51.9 Headache, unspecified; R42 Dizziness and giddiness
CPT/HCPCS: 70551